=== PATIENT | male | born 1985 | race American Indian/Alaskan Native ===

== ENCOUNTER 2016-06-03 03:45 | Inpatient (IN) | payer BC, MEDICAID ==
[2016-06-03] MEDS ORDERED: Sodium Chloride 0.9% 1,000 ML IV STA (04:07)
--- NOTE | 2016-06-03 04:24 | ED PDOC ---
Arrival/HPI - General Chief Complaint: Abdominal Pain Time Seen by Provider: 06/03/16 04:03 Historian: Patient - History of Present Illness Narrative History of Present Illness (Text): 06/03/16 04:25 Spenser Villareal is a 31 year old male, with a history of pre-diabetes, pancreatitis and ETOH abuse, presents to the emergency department for evaluation of multiple episodes of non-bloody, non-bilious vomit since earlier today morning. Reports that symptoms are associated with abdominal pain and back /flank pain. Denies eating anything out of ordinary yesterday night. Denies fever, chills, headache, dizziness, diarrhea, urinary symptoms, or any other complaints at this time. Time/Duration: 4-6 hours Symptom Onset: Gradual Symptom Course: Unchanged Severity Level: Mild Activities at Onset: Light Context: Home Past Medical History - Provider Review Nursing Documentation Reviewed: Yes - Infectious Disease Hx of Infectious Diseases: None - Tetanus Immunization Tetanus Immunization: Unknown - Cardiac Hx Cardiac Disorders: No Hx Hypertension: No - Pulmonary Hx Respiratory Disorders: No Hx Tuberculosis: No - Neurological HX Cerebrovascular Accident: No Hx Seizures: No - HEENT Hx HEENT Disorder: No - Renal Hx Renal Disorder: No - Endocrine/Metabolic Hx Endocrine Disorders: No - Hematological/Oncological Hx Blood Disorders: No Hx Cancer: No - Integumentary Hx Dermatological Disorder: No - Musculoskeletal/Rheumatological Hx Musculoskeletal Disorders: No Hx Falls: No - Gastrointestinal Hx Pancreatitis: Yes - Genitourinary/Gynecological Hx Genitourinary Disorders: No Hx Sexually Transmitted Diseases: No - Psychiatric Hx Psychophysiologic Disorder: No Hx Substance Use: Yes - Past Surgical History Past Surgical History: No Previous - Anesthesia Hx Anesthesia: No - Suicidal Assessment Feels Threatened In Home Enviroment: No Family/Social History - Physician Review Nursing Documentation Reviewed: Yes Family/Social History: No Known Family HX Smoking Status: Smoker Currrent Status Unknown Hx Alcohol Use: No (states occasionally) Hx Substance Use: Yes Allergies/Home Meds Allergies/Adverse Reactions: Allergies shellfish derived Allergy (Verified 09/12/15 21:21) ANAPHYLAXIS venom-honey bee [bee venom (honey bee)] Allergy (Verified 09/12/15 21:21) ANAPHYLAXIS Home Medications: Home Meds Medication Instructions Recorded Confirmed No Known Home Med 09/12/15 09/12/15 Review of Systems - Physician Review All systems were reviewed & negative as marked: Yes - Review of Systems Constitutional: Normal. absent: Fatigue, Fevers Respiratory: Normal. absent: SOB, Cough Cardiovascular: Normal. absent: Chest Pain, Palpitations Gastrointestinal: Abdominal Pain, Nausea, Vomiting. absent: Diarrhea Genitourinary Male: Normal. absent: Dysuria, Frequency Musculoskeletal: Back Pain (flank pain ) Neurological: Normal. absent: Headache, Dizziness Psychiatric: Normal Physical Exam Vital Signs Reviewed: Yes Vital Signs Temp Pulse Resp BP Pulse Ox 06/03/16 04:04 18 96 06/03/16 03:58 98.7 F 94 H 21 141/79 99 Temperature: Afebrile Blood Pressure: Normal Pulse: Regular Respiratory Rate: Normal Appearance: Positive for: Well-Appearing, Non-Toxic, Comfortable Pain Distress: None Mental Status: Positive for: Alert and Oriented X 3 - Systems Exam Head: Present: Atraumatic, Normocephalic Pupils: Present: PERRL Extroacular Muscles: Present: EOMI Conjunctiva: Present: Normal Mouth: Present: Moist Mucous Membranes Respiratory/Chest: Present: Clear to Auscultation, Good Air Exchange. No: Respiratory Distress, Accessory Muscle Use Cardiovascular: Present: Regular Rate and Rhythm, Normal S1, S2. No: Murmurs Abdomen: Present: Tenderness (diffuse abdominal tenderness ), Normal Bowel Sounds. No: Distention, Peritoneal Signs, Rebound, Guarding Upper Extremity: Present: Normal Inspection. No: Cyanosis, Edema Lower Extremity: Present: Normal Inspection. No: Edema Skin: Present: Warm, Dry, Normal Color. No: Rashes Psychiatric: Present: Alert, Oriented x 3, Normal Insight, Normal Concentration Medical Decision Making ED Course and Treatment: Impression: A 31 year old male who presents to the emergency department complaining of vomiting associated with abdominal and back pain since earlier today. Plan: -- Labs -- IV fluids -- Toradol -- Zofran -- Urinalysis -- Reassess and disposition Progress Notes: 06/03/16 05:33 Case discussed with resident for admission to the hospital for pancreatitis. Will discuss with Dr. Amato. - Lab Interpretations Lab Results: 06/03/16 04:20 06/03/16 04:20 Lab Results 06/03/16 04:20: WBC 8.2, RBC 4.39, Hgb 13.2 L, Hct 38.2 L, MCV 87.0, MCH 30.1, MCHC 34.6, RDW 13.7, Plt Count 143, MPV 10.8, Sodium 139, Potassium 4.0, Chloride 104, Carbon Dioxide 25, Anion Gap 14, BUN 15, Creatinine 1.0, Est GFR ( Amer) > 60, Est GFR (Non-Af Amer) > 60, Random Glucose 125 H, Calcium 9.1, Total Bilirubin 0.8, AST 31, ALT 29, Alkaline Phosphatase 46, Total Protein 7.7, Albumin 4.2, Globulin 3.5, Albumin/Globulin Ratio 1.2, Lipase 1248 H - Medication Orders Current Medication Orders: Discontinued Medications Sodium Chloride (Sodium Chloride 0.9%) 1,000 mls @ 999 mls/hr IV .Q1H1M STA Stop: 06/03/16 05:07 Last Admin: 06/03/16 04:34 Dose: 999 MLS/HR eMAR Start Stop Document 06/03/16 04:34 [facility] (Rec: 06/03/16 04:35 [id number] Intravenous Solution Start Date 06/03/16 Start Time 04:34 End Date 06/03/16 End time 05:34 Total Infusion Time 60 Ketorolac Tromethamine (Toradol) 30 mg IVP ONCE ONE Stop: 06/03/16 04:08 Last Admin: 06/03/16 04:35 Dose: 30 MG IVP Administration Document 06/03/16 04:35 [facility] (Rec: 06/03/16 04:35 [id number] Charges for Administration # of IVP Administrations 1 Morphine Sulfate (Morphine) 2 mg IVP STAT STA Stop: 06/03/16 05:18 Last Admin: 06/03/16 05:25 Dose: 2 MG MAR Pain Assessment Document 06/03/16 05:25 RD (Rec: 06/03/16 05:25 RD [id number]) Pain Reassessment Is this a pain reassessment? No Sleep Is patient sleeping during reassessment? No Presence of Pain Presence of Pain Yes IVP Administration Document 06/03/16 05:25 RD (Rec: 06/03/16 05:25 RD [id number]) Charges for Administration # of IVP Administrations 1 Ondansetron HCl (Zofran Inj) 4 mg IVP ONCE ONE Stop: 06/03/16 04:08 Last Admin: 06/03/16 04:35 Dose: 4 MG IVP Administration Document 06/03/16 04:35 JESSICA (Rec: 06/03/16 04:35 [id number] Charges for Administration # of IVP Administrations 1 - Scribe Statement The provider has reviewed the documentation as recorded by the Sonal Spencer Provider Attestation: All medical record entries made by the Sonal were at my direction and personally dictated by me. I have reviewed the chart and agree that the record accurately reflects my personal performance of the history, physical exam, medical decision making, and the department course for this patient. I have also personally directed, reviewed, and agree with the discharge instructions and disposition. Disposition/Present on Arrival - Present on Arrival Any Indicators Present on Arrival: No History of DVT/PE: No History of Uncontrolled Diabetes: No Urinary Catheter: No History of Decub. Ulcer: No History Surgical Site Infection Following: None - Disposition Have Diagnosis and Disposition been Completed?: Yes Diagnosis: Pancreatitis, Abdominal pain, Vomiting Disposition: HOSPITALIZED Disposition Time: 05:18 Patient Plan: Admission Patient Problems: Current Active Problems Problem Status Diagnosed Abdominal pain Acute Pancreatitis Acute Vomiting Acute Condition: STABLE
[2016-06-03 04:43] LABS: HEMATOCRIT 38.2 % (42.0-52.0); MEAN CORPUSCULAR HEMOGLOBIN 30.1 pg (25.0-35.0); MEAN CORPUSCULAR HGB CONC 34.6 g/dl (31.0-37.0); MEAN PLATELET VOLUME 10.8 fl (7.0-11.0); RED CELL DISTRIBUTION WIDTH 13.7 % (11.5-14.5); WHITE BLOOD COUNT 8.2 10^3/ul (4.5-11.0)
[2016-06-03 04:47] LABS: ALB/GLOB RATIO 1.2 (1.1-1.8); ALKALINE PHOSPHATASE 46 U/L (38-133); ALT/SGPT 29 U/L (7-56); AST/SGOT 31 U/L (15-59); BILIRUBIN,TOTAL 0.8 mg/dL (0.2-1.3); BLOOD UREA NITROGEN 15 mg/dL (7-21); CALCIUM 9.1 mg/dL (8.4-10.5); CARBON DIOXIDE 25 mmol/L (21-33); CHLORIDE 104 mmol/L (95-110); GFR AFRICAN-AMERICAN > 60; GLUCOSE,RANDOM 125 mg/dL (70-110); LIPASE 1248 U/L (23-300); SODIUM 139 mmol/L (132-148); TOTAL PROTEIN 7.7 g/dL (5.8-8.3)
[2016-06-03] MEDS ORDERED: Morphine 2 mg/ml ISec IVP STA (05:17)
--- NOTE | 2016-06-03 06:07 | CP.PCM.HP ---
History of Present Illness - History of Present Illness History of Present Illness: This is a 31 yo male with past medical hx of pancreatitis and prediabetes presenting with vomiting x 6 hrs. Pt began vomiting at around midnight. This was preceded, roughly 1 hr before, by abdominal pain. Abdominal pain was diffuse with radiation to back. It came on gradually. He rated it 7/10. No relation to food. Last BM earlier in the morning. No recent travel. Does report son is sick with "something viral." Pt vomited 6 times overall non bloody and non bilious. Did not take any meds at home, Denies sob, fevers. Denies diarrhea. Reports some chills. Denies cough. Last time this happened was 1 year ago and he was dx with pancreatitis. PMH: Pre-diabetes, allergies, pancreatitis PSH: None Allergies: NKDA FH: HTN, DM in family Social hx: Born in . Lives in [place]. Works as web marketing intern. Current smoker. Smokes cigars. Social drinker. Smokes cannabis. No other drug use. Meds: no home meds. Present on Admission - Present on Admission Any Indicators Present on Admission: No History of DVT/PE: No History of Uncontrolled Diabetes: No Urinary Catheter: No Decubitus Ulcer Present: No Review of Systems - Review of Systems All systems: reviewed and no additional remarkable complaints except Review of Systems: Negative except as per HPI. Past Patient History - Infectious Disease Hx of Infectious Diseases: None - Tetanus Immunizations Tetanus Immunization: Unknown - Past Medical History & Family History Past Medical History?: Yes Past Family History: Reviewed and not pertinent - Past Social History Smoking Status: Current Some Days Smoker Chewing Tobacco Use: No Cigar Use: Yes Alcohol: Social Drugs: Cannabis Home Situation {Lives}: With Family Domestic Violence: Negative - CARDIAC Hx Cardiac Disorders: No Hx Hypertension: No - PULMONARY Hx Respiratory Disorders: No Hx Tuberculosis: No - NEUROLOGICAL HX Cerebrovascular Accident: No Hx Seizures: No - HEENT Hx HEENT Problems: No - RENAL Hx Chronic Kidney Disease: No - ENDOCRINE/METABOLIC Hx Endocrine Disorders: No - HEMATOLOGICAL/ONCOLOGICAL Hx Blood Disorders: No Hx Cancer: No - INTEGUMENTARY Hx Dermatological Problems: No - MUSCULOSKELETAL/RHEUMATOLOGICAL Hx Musculoskeletal Disorders: No Hx Falls: No - GASTROINTESTINAL Hx Pancreatitis: Yes - GENITOURINARY/GYNECOLOGICAL Hx Genitourinary Disorders: No Hx Sexually Transmitted Disorders: No - PSYCHIATRIC Hx Psychophysiologic Disorder: No Hx Substance Use: Yes - SURGICAL HISTORY Hx Surgeries: No - ANESTHESIA Hx Anesthesia: No Meds Allergies/Adverse Reactions: Allergies Allergy/AdvReac Type Severity Reaction Status Date / Time shellfish derived Allergy ANAPHYLAXIS Verified 09/12/15 21:21 venom-honey bee Allergy ANAPHYLAXIS Verified 09/12/15 21:21 [bee venom (honey bee)] Physical Exam - Constitutional Appears: Non-toxic, In Acute Distress - Head Exam Head Exam: ATRAUMATIC, NORMAL INSPECTION, NORMOCEPHALIC - Eye Exam Eye Exam: EOMI - ENT Exam ENT Exam: Mucous Membranes Moist - Neck Exam Neck exam: Positive for: Full Rom, Normal Inspection - Respiratory Exam Respiratory Exam: Clear to Auscultation Bilateral, NORMAL BREATHING PATTERN - Cardiovascular Exam Cardiovascular Exam: REGULAR RHYTHM - GI/Abdominal Exam GI & Abdominal Exam: Guarding, Tenderness Additional comments: Moderate tenderness all 4 quadrants - Extremities Exam Extremities exam: Positive for: normal inspection - Back Exam Back exam: CVA tenderness (L), CVA tenderness (R) - Neurological Exam Neurological exam: Alert, Oriented x3 - Psychiatric Exam Psychiatric exam: Normal Affect, Normal Mood - Skin Skin Exam: Dry, Intact, Normal Color, Warm Results - Vital Signs Recent Vital Signs: Last Vital Signs Temp 98.7 F 06/03/16 03:58 Pulse 88 06/03/16 06:01 Resp 17 06/03/16 06:01 BP 131/71 06/03/16 06:01 Pulse Ox 99 06/03/16 06:01 - Labs Result Diagrams: 06/03/16 04:20 06/03/16 04:20 Labs: Laboratory Results - last 24 hr 06/03/16 04:20 WBC 8.2 RBC 4.39 Hgb 13.2 L Hct 38.2 L MCV 87.0 MCH 30.1 MCHC 34.6 RDW 13.7 Plt Count 143 MPV 10.8 Sodium 139 Potassium 4.0 Chloride 104 Carbon Dioxide 25 Anion Gap 14 BUN 15 Creatinine 1.0 Est GFR ( Amer) > 60 Est GFR (Non-Af Amer) > 60 Random Glucose 125 H Calcium 9.1 Total Bilirubin 0.8 AST 31 ALT 29 Alkaline Phosphatase 46 Total Protein 7.7 Albumin 4.2 Globulin 3.5 Albumin/Globulin Ratio 1.2 Lipase 1248 H Assessment & Plan - Assessment and Plan (Free Text) Assessment: This is a 31 yo male with hx of pancreatitis and pre diabetes presenting with acute abdominal pain and vomiting secondary to 1. Acute pancreatitis -we will give zofran prn -morphine q 3 prn -ct abdomen with iv contrast -repeat labs at 3 pm -lipase elevated -NS @ 200 cc/hr -pt to remain NPO 2. Hx of pre diabetes -repeat HGB A1C 3. GI/DVT ppx -protonix -SCDs dw Dr. Amato
[2016-06-03] MEDS ORDERED: Morphine 2 mg/ml ISec IVP PRN ×2 (06:11→12:38)
[2016-06-03] MEDS ORDERED: Sodium Chloride 0.9% 1,000 ML IV SCH ×2 (06:15→06:38)
[2016-06-03] MEDS ORDERED: Iohexol 350 MG/100 ML VIAL ONE (07:39)
[2016-06-03] MEDS ORDERED: Morphine 2 mg/ml ISec IVP SCH (09:00)
[2016-06-03] MEDS: Lactated Ringer's 1,000 ML IV SCH ×2 (09:21→14:53)
--- NOTE | 2016-06-03 09:34 | CT ---
PROCEDURE: CT Abdomen with intravenous contrast HISTORY: abdominal pain, with iv contrast COMPARISON: None. TECHNIQUE: Axial images of the abdomen from lung bases to iliac crest with and without intravenous contrast enhancement. Coronal and sagittal reformats generated. Oral contrast also administered. Intravenous contrast Dose: 100 cc of Omni 350 Radiation dose: Total exam DLP = 291 mGy-cm. FINDINGS: LOWER THORAX: Unremarkable. LIVER: Unremarkable. No gross lesion or ductal dilatation. GALLBLADDER AND BILE DUCTS: Unremarkable. PANCREAS: Unremarkable. No gross lesion or ductal dilatation. SPLEEN: Unremarkable. ADRENALS: Unremarkable. No mass. KIDNEYS AND URETERS: Unremarkable. No hydronephrosis. No solid mass. VASCULATURE: Unremarkable. No aortic aneurysm. BOWEL: Unremarkable. No obstruction. No gross mural thickening. PERITONEUM: Unremarkable. No free fluid. No free air. LYMPH NODES: Unremarkable. No enlarged lymph nodes. BONES: No acute fracture. OTHER FINDINGS: None. IMPRESSION: No acute findings
--- NOTE | 2016-06-03 12:23 | CP.PCM.CON ---
History of Present Illness - History of Present Illness History of Present Illness: CC: Abdominal pain HPI: 31 year old male with h/o pancreatitis who presents with abdominal pain. He reports the pain woke him up from sleeping this morning. He localizes the pain to the epigastric area. He says the pain is constant and severe. He has continuous vomiting and spitting up saliva since this morning. His son got sick with vomiting Thursday also. He says he has had at least 5 similar episodes of pancreatitis where he is admitted to the hospital and no etiology has been diagnosed. He reports no chest pain or sob. No fever. No rectal bleeding. No recent weight loss PMHx Acute recurrent pancreatitis PSHx denies SHx social etoh and smoking, denies abuse, denies drug abuse FHx denies fhx pancreatic disease ROS A comprehensive review of systems was performed and was negative apart from HPI Past Patient History - Infectious Disease Hx of Infectious Diseases: None - Tetanus Immunizations Tetanus Immunization: Unknown - Past Medical History & Family History Past Medical History?: Yes Past Family History: Reviewed and not pertinent - Past Social History Smoking Status: Current Some Days Smoker Chewing Tobacco Use: No Cigar Use: Yes Alcohol: Social Drugs: Cannabis Home Situation {Lives}: With Family Domestic Violence: Negative - CARDIAC Hx Cardiac Disorders: No Hx Hypertension: No - PULMONARY Hx Respiratory Disorders: No Hx Tuberculosis: No - NEUROLOGICAL HX Cerebrovascular Accident: No Hx Seizures: No - HEENT Hx HEENT Problems: No - RENAL Hx Chronic Kidney Disease: No - ENDOCRINE/METABOLIC Hx Endocrine Disorders: No - HEMATOLOGICAL/ONCOLOGICAL Hx Blood Disorders: No Hx Cancer: No - INTEGUMENTARY Hx Dermatological Problems: No - MUSCULOSKELETAL/RHEUMATOLOGICAL Hx Musculoskeletal Disorders: No Hx Falls: No - GASTROINTESTINAL Hx Pancreatitis: Yes - GENITOURINARY/GYNECOLOGICAL Hx Genitourinary Disorders: No Hx Sexually Transmitted Disorders: No - PSYCHIATRIC Hx Psychophysiologic Disorder: No Hx Substance Use: Yes - SURGICAL HISTORY Hx Surgeries: No - ANESTHESIA Hx Anesthesia: No Meds Allergies/Adverse Reactions: Allergies Allergy/AdvReac Type Severity Reaction Status Date / Time shellfish derived Allergy ANAPHYLAXIS Verified 06/03/16 12:14 venom-honey bee Allergy ANAPHYLAXIS Verified 06/03/16 12:14 [bee venom (honey bee)] - Medications Medications: Current Medications Lactated Ringer's (Lactated Ringer's) 1,000 mls @ 200 mls/hr IV .Q5H [facility] Last Admin: 06/03/16 09:21 Dose: 200 mls/hr Morphine Sulfate (Morphine) 2 mg IVP Q3 [facility] Last Admin: 06/03/16 09:29 Dose: 2 mg Ondansetron HCl (Zofran Inj) 4 mg IVP Q4H PRN PRN Reason: Nausea/Vomiting Last Admin: 06/03/16 06:52 Dose: 4 mg Pantoprazole Sodium (Protonix Inj) 40 mg IVP DAILY [facility] Last Admin: 06/03/16 09:18 Dose: 40 mg Physical Exam - Constitutional Appears: Well, No Acute Distress - Head Exam Head Exam: ATRAUMATIC, NORMOCEPHALIC - Eye Exam Eye Exam: Normal appearance. absent: Scleral icterus - ENT Exam ENT Exam: Mucous Membranes Moist, Normal Oropharynx - Neck Exam Neck exam: Negative for: Lymphadenopathy, Thyromegaly - Respiratory Exam Respiratory Exam: Clear to Auscultation Bilateral, NORMAL BREATHING PATTERN. absent: Wheezes, Respiratory Distress - Cardiovascular Exam Cardiovascular Exam: REGULAR RHYTHM, +S1, +S2 - GI/Abdominal Exam GI & Abdominal Exam: Soft. absent: Distended, Firm, Guarding, Tenderness - Extremities Exam Extremities exam: Positive for: normal capillary refill. Negative for: calf tenderness, pedal edema - Neurological Exam Neurological exam: Alert, Oriented x3 - Psychiatric Exam Psychiatric exam: Normal Affect, Normal Mood - Skin Skin Exam: Dry, Normal Color, Warm Results - Vital Signs Recent Vital Signs: Last Vital Signs Temp 98.2 F 06/03/16 07:30 Pulse 84 06/03/16 07:30 Resp 20 06/03/16 07:30 BP 117/62 06/03/16 07:30 Pulse Ox 98 06/03/16 07:30 - Labs Result Diagrams: 06/03/16 04:20 06/03/16 04:20 Labs: Laboratory Results - last 24 hr 06/03/16 06/03/16 07:00 09:00 Hemoglobin A1c 5.7 Urine Opiates Screen Positive H Urine Methadone Screen Negative Ur Barbiturates Screen Negative Ur Phencyclidine Scrn Negative Ur Amphetamines Screen Negative U Benzodiazepines Scrn Negative U Oth Cocaine Metabols Negative U Cannabinoids Screen Positive H Alcohol, Quantitative < 10 Assessment & Plan - Assessment and Plan (Free Text) Assessment: 31 year old male admitted with recurrent acute pancreatitis. 1. Acute pancreatitis Plan: -recommend aggressive IV hydration with LR at 200 cc/hr x next 24 hours -pain control and antiemetics as needed -etiology uncertain -recommend uS abdomen r/o gallstones -recommend MRCP to evaluate for pancreas divisum -recommend outpatient EUS in 6-8 weeks -check triglyceride level -will follow - Date & Time Date: 06/03/16 Time: 12:23
[2016-06-03 13:37] VITALS: BMI 27.0
[2016-06-03] MEDS ORDERED: Influenza Vaccine 45 MCG/0.5 ml IM ONE (13:37)
[2016-06-03] MEDS ORDERED: Pneumococcal 23-Valent Vaccine IM ONE (13:37)
[2016-06-03 15:54] LABS: ADD MANUAL DIFF? NO
[2016-06-03 15:59] LABS: GRAN # 5.02 (1.4-6.5); GRAN % 86.7 % (50.0-68.0); HEMATOCRIT 37.8 % (42.0-52.0); LYMPH # 0.5 (1.2-3.4); LYMPH % 8.6 % (22.0-35.0); MEAN CELL VOLUME 88.1 fL (80.0-105.0); MEAN CORPUSCULAR HEMOGLOBIN 29.6 pg (25.0-35.0); MEAN CORPUSCULAR HGB CONC 33.6 g/dl (31.0-37.0); MEAN PLATELET VOLUME 10.6 fl (7.0-11.0); MONO # 0.3 (0.1-0.6); MONO % 4.7 % (1.0-6.0); PLATELET COUNT 150 10^3/uL (120.0-450.0); RED CELL DISTRIBUTION WIDTH 14.1 % (11.5-14.5); WHITE BLOOD COUNT 5.8 10^3/ul (4.5-11.0)
[2016-06-03 16:05] VITALS: BP 119/71; PULSE 97; RESP 18; TEMP 99.7; O2SAT 100
[2016-06-03 16:08] LABS: ALB/GLOB RATIO 1.2 (1.1-1.8); ALKALINE PHOSPHATASE 38 U/L (38-133); ALT/SGPT 27 U/L (7-56); AST/SGOT 30 U/L (15-59); BILIRUBIN,TOTAL 1.3 mg/dL (0.2-1.3); BLOOD UREA NITROGEN 13 mg/dL (7-21); CALCIUM 8.8 mg/dL (8.4-10.5); CARBON DIOXIDE 25 mmol/L (21-33); CHLORIDE 103 mmol/L (98-107); CHOLESTEROL 154 mg/dL (130-200); GFR AFRICAN-AMERICAN > 60; GLUCOSE,RANDOM 108 mg/dL (70-110); LIPASE 1357 U/L (23-300); POTASSIUM 3.8 mmol/L (3.6-5.0); SODIUM 139 mmol/L (132-148); TOTAL PROTEIN 7.2 g/dL (5.8-8.3)
--- NOTE | 2016-06-03 16:11 | CP.PCM.PN ---
<Immanuel Burgos - Last Filed: 06/03/16 16:04> Subjective - Date & Time of Evaluation Date of Evaluation: 06/03/16 Time of Evaluation: 16:04 - Subjective Subjective: Code star 15:34 Patient had witnessed fall from bed. He was sitting on side of his bed while waiting to get his blood drawn. Patient stated that he was feeling extremely nauseous and could not take it. He then rolled from the bed to the floor. Patient denied hitting his head. Afterwards, patient still complaining of nausea and intense abdominal pain in LUQ. Patient was able to get back up to bed with help. He continued to have nausea/pain. Vital signs 99.7 F, 97, 119/71, 18, 100% PE: Head: NCAT RESP: CTAB Cardio: RRR ,+S1 +S2 ABD: BS+, Soft, tender to palpation LUQ, no guarding/rebound, nondistended Neuro: AAO x 3 Skin: no trauma-related abrasions or lesions Objective - Vital Signs/Intake and Output Vital Signs (last 24 hours): Temp Pulse Resp BP Pulse Ox 98.2 F 84 20 117/62 98 06/03/16 13:13 06/03/16 13:13 06/03/16 13:13 06/03/16 13:13 06/03/16 07:30 Intake and Output: 06/03/16 06/03/16 06:59 18:59 Intake Total 0 Balance 0 - Medications Medications: Current Medications Lactated Ringer's (Lactated Ringer's) 1,000 mls @ 200 mls/hr IV .Q5H [facility] Last Admin: 06/03/16 14:53 Dose: 200 mls/hr Morphine Sulfate (Morphine) 2 mg IVP Q3 PRN PRN Reason: Pain, severe (8-10) Ondansetron HCl (Zofran Inj) 4 mg IVP Q4H PRN PRN Reason: Nausea/Vomiting Last Admin: 06/03/16 06:52 Dose: 4 mg Pantoprazole Sodium (Protonix Inj) 40 mg IVP DAILY [facility] Last Admin: 06/03/16 09:18 Dose: 40 mg <Funmi Bello - Last Filed: 06/03/16 18:57> Subjective - Date & Time of Evaluation Date of Evaluation: 06/03/16 Time of Evaluation: 12:00 - Subjective Subjective: pt is admitted with acute pancreatitis , was vomiting by bed side and rolled over to the florr did not hit head ,no loc, is c/o lower back pain. Objective - Vital Signs/Intake and Output Vital Signs (last 24 hours): Temp Pulse Resp BP Pulse Ox 99.7 F H 97 H 18 119/71 100 06/03/16 16:03 06/03/16 16:03 06/03/16 16:03 06/03/16 16:03 06/03/16 16:03 Intake and Output: 06/03/16 06/03/16 06:59 18:59 Intake Total 0 Balance 0 - Medications Medications: Current Medications Lactated Ringer's (Lactated Ringer's) 1,000 mls @ 200 mls/hr IV .Q5H [facility] Last Admin: 06/03/16 14:53 Dose: 200 mls/hr Morphine Sulfate (Morphine) 2 mg IVP Q3 PRN PRN Reason: Pain, severe (8-10) Ondansetron HCl (Zofran Inj) 4 mg IVP Q4H PRN PRN Reason: Nausea/Vomiting Last Admin: 06/03/16 06:52 Dose: 4 mg Pantoprazole Sodium (Protonix Inj) 40 mg IVP DAILY [facility] Last Admin: 06/03/16 09:18 Dose: 40 mg - Labs Labs: 06/03/16 15:50 06/03/16 15:50
--- NOTE | 2016-06-03 21:35 | CP.PCM.PN ---
Subjective - Date & Time of Evaluation Date of Evaluation: 06/03/16 Time of Evaluation: 21:33 - Subjective Subjective: Code star call. Pt did not have code star. Pt did not fall. He went down onto floor, was retching, and tried to throw up in basin. Objective - Vital Signs/Intake and Output Vital Signs (last 24 hours): Temp Pulse Resp BP Pulse Ox 99.7 F H 97 H 18 119/71 100 06/03/16 16:03 06/03/16 16:03 06/03/16 16:03 06/03/16 16:03 06/03/16 16:03 Intake and Output: 06/03/16 06/04/16 18:59 06:59 Intake Total 0 Balance 0 - Medications Medications: Current Medications Lactated Ringer's (Lactated Ringer's) 1,000 mls @ 200 mls/hr IV .Q5H [facility] Last Admin: 06/03/16 14:53 Dose: 200 mls/hr Morphine Sulfate (Morphine) 2 mg IVP Q3 PRN PRN Reason: Pain, severe (8-10) Ondansetron HCl (Zofran Inj) 4 mg IVP Q4H PRN PRN Reason: Nausea/Vomiting Last Admin: 06/03/16 06:52 Dose: 4 mg Pantoprazole Sodium (Protonix Inj) 40 mg IVP DAILY [facility] Last Admin: 06/03/16 09:18 Dose: 40 mg - Labs Labs: 06/03/16 15:50 06/03/16 15:50 - Constitutional Appears: In Acute Distress - Head Exam Head Exam: ATRAUMATIC, NORMAL INSPECTION, NORMOCEPHALIC - Eye Exam Eye Exam: EOMI - Neck Exam Neck Exam: Full ROM, Normal Inspection. absent: Lymphadenopathy - Respiratory Exam Respiratory Exam: Clear to Ausculation Bilateral, NORMAL BREATHING PATTERN - Cardiovascular Exam Cardiovascular Exam: REGULAR RHYTHM, +S1, +S2. absent: Murmur - GI/Abdominal Exam GI & Abdominal Exam: Tenderness - Neurological Exam Neurological Exam: Alert, Awake, Oriented x3 - Psychiatric Exam Psychiatric exam: Agitated - Skin Skin Exam: Dry, Intact, Normal Color, Warm Assessment and Plan - Assessment and Plan (Free Text) Assessment: 1. Acute pancreatitis /retching -no code star -pt did not fall -will give 1 stat dose of regiglesia Amato
[2016-06-04 07:38] LABS: ADD MANUAL DIFF? NO
[2016-06-04 07:43] LABS: BASO # 0.01 K/mm3 (0.0-2.0); BASO % 0.2 % (0.0-3.0); EOS % 0.3 % (1.5-5.0); GRAN # 3.97 (1.4-6.5); GRAN % 65.1 % (50.0-68.0); HEMATOCRIT 34.8 % (42.0-52.0); LYMPH # 1.4 (1.2-3.4); LYMPH % 23.2 % (22.0-35.0); MEAN CELL VOLUME 87.2 fL (80.0-105.0); MEAN CORPUSCULAR HEMOGLOBIN 29.3 pg (25.0-35.0); MEAN CORPUSCULAR HGB CONC 33.6 g/dl (31.0-37.0); MEAN PLATELET VOLUME 10.8 fl (7.0-11.0); MONO # 0.7 (0.1-0.6); MONO % 11.2 % (1.0-6.0); PLATELET COUNT 145 10^3/uL (120.0-450.0); WHITE BLOOD COUNT 6.1 10^3/ul (4.5-11.0)
--- NOTE | 2016-06-04 07:47 | US ---
HISTORY: pancreatitis, r/o gallstones COMPARISON: None. TECHNIQUE: Sonographic evaluation of the right upper quadrant of the abdomen. FINDINGS: LIVER: Measures 15 cm in length. It is normal in size Increased echogenicity of the liver parenchyma. No mass. No intrahepatic bile duct dilatation. GALLBLADDER: Unremarkable. No gallstones. COMMON BILE DUCT: Measures 5 mm. No stones. No dilatation. PANCREAS: Unremarkable as visualized. No mass. No ductal dilatation. RIGHT KIDNEY: Measures 11 cm in length. Normal echogenicity. No calculus, mass, or hydronephrosis. AORTA: No aneurysmal dilatation. IVC: Unremarkable. OTHER FINDINGS: None . IMPRESSION: Mild increased liver echogenicity -fatty liver changes possible. Otherwise negative
--- NOTE | 2016-06-04 08:03 | CP.PCM.PN ---
Subjective - Date & Time of Evaluation Date of Evaluation: 06/04/16 Time of Evaluation: 07:20 - Subjective Subjective: PGY4 GI Fellow Progress Note Patient seen and examined bedside this morning. The patient is stating that he is feeling much better and would like to go home. He does not wish to stay and have further work up as he is concerned about his children at home as well as missing work. Denies any abdominal pain, nausea, vomiting. Eager to advance diet. 12 system ROS performed and negative except where stated. Objective - Vital Signs/Intake and Output Vital Signs (last 24 hours): Temp Pulse Resp BP Pulse Ox 99.7 F H 97 H 18 119/71 100 06/03/16 16:03 06/03/16 16:03 06/03/16 16:03 06/03/16 16:03 06/03/16 16:03 - Medications Medications: Current Medications Lactated Ringer's (Lactated Ringer's) 1,000 mls @ 200 mls/hr IV .Q5H [facility] Last Admin: 06/03/16 14:53 Dose: 200 mls/hr Morphine Sulfate (Morphine) 2 mg IVP Q3 PRN PRN Reason: Pain, severe (8-10) Last Admin: 06/03/16 22:48 Dose: 2 mg Ondansetron HCl (Zofran Inj) 4 mg IVP Q4H PRN PRN Reason: Nausea/Vomiting Last Admin: 06/03/16 06:52 Dose: 4 mg Pantoprazole Sodium (Protonix Inj) 40 mg IVP DAILY [facility] Last Admin: 06/03/16 09:18 Dose: 40 mg - Labs Labs: 06/04/16 07:05 06/03/16 15:50 - Constitutional Appears: Non-toxic, No Acute Distress - Eye Exam Eye Exam: EOMI, PERRL - ENT Exam ENT Exam: Mucous Membranes Moist - Respiratory Exam Respiratory Exam: Clear to Ausculation Bilateral. absent: Rales, Rhonchi, Wheezes - Cardiovascular Exam Cardiovascular Exam: RRR, +S1, +S2 - GI/Abdominal Exam GI & Abdominal Exam: Soft, Normal Bowel Sounds. absent: Distended, Firm, Guarding, Rigid, Tenderness, Organomegaly - Extremities Exam Extremities Exam: Normal Inspection. absent: Pedal Edema - Neurological Exam Neurological Exam: Alert, Awake, Oriented x3 - Psychiatric Exam Psychiatric exam: Normal Mood - Skin Skin Exam: Dry, Warm Assessment and Plan - Assessment and Plan (Free Text) Assessment: 31 year old male admitted with recurrent acute pancreatitis with unexplained etiology -Acute pancreatitis Plan: -Patient asymptomatic at present -Recommend MRCP to evaluate PD, r/o divisum, masses -TG level low -Awaiting U/S report -Continue IVF, advance diet as tolerated -Consider checking IgG4 - r/o autoimmune pancreatitis -If patient to be D/C, recommend outpatient F/U with Dr Alexander -Recommend outpatient EUS in 6-8 weeks -Will follow
[2016-06-04 08:04] LABS: ALB/GLOB RATIO 1.2 (1.1-1.8); ALKALINE PHOSPHATASE 35 U/L (38-133); ALT/SGPT 27 U/L (7-56); AST/SGOT 29 U/L (15-59); BILIRUBIN,TOTAL 0.8 mg/dL (0.2-1.3); BLOOD UREA NITROGEN 13 mg/dL (7-21); CALCIUM 8.5 mg/dL (8.4-10.5); CARBON DIOXIDE 27 mmol/L (21-33); CHLORIDE 105 mmol/L (95-110); GFR AFRICAN-AMERICAN > 60; GLUCOSE,RANDOM 94 mg/dL (70-110); POTASSIUM 3.5 mmol/L (3.6-5.0); SODIUM 141 mmol/L (132-148); TOTAL PROTEIN 6.4 g/dL (5.8-8.3)
--- NOTE | 2016-06-04 14:58 | CP.PCM.DIS ---
<Ru Trinh - Last Filed: 06/05/16 02:05> Provider - Provider Date of Admission: 06/03/16 05:19 Attending physician: Amarilis Sierra MD Primary care physician: Dr. Whitmore Consults: Dr. Hatfield Time Spent in preparation of Discharge (in minutes): 40 Diagnosis - Discharge Diagnosis (1) Acute pancreatitis Status: Resolved (2) Vomiting Status: Resolved (3) Prediabetes Status: Chronic Hospital Course - Lab Results Lab Results: Most Recent Lab Values WBC 6.1 10^3/ul (4.5-11.0) 06/04/16 07:05 RBC 3.99 10^6/uL (3.5-6.1) 06/04/16 07:05 Hgb 11.7 gm/dL (14.0-18.0) L 06/04/16 07:05 Hct 34.8 % (42.0-52.0) L 06/04/16 07:05 MCV 87.2 fL (80.0-105.0) 06/04/16 07:05 MCH 29.3 pg (25.0-35.0) 06/04/16 07:05 MCHC 33.6 g/dl (31.0-37.0) 06/04/16 07:05 RDW 14.0 % (11.5-14.5) 06/04/16 07:05 Plt Count 145 10^3/uL (120.0-450.0) 06/04/16 07:05 MPV 10.8 fl (7.0-11.0) 06/04/16 07:05 Gran % 65.1 % (50.0-68.0) 06/04/16 07:05 Lymph % (Auto) 23.2 % (22.0-35.0) 06/04/16 07:05 [place] % (Auto) 11.2 % (1.0-6.0) H 06/04/16 07:05 Eos % (Auto) 0.3 % (1.5-5.0) L 06/04/16 07:05 Baso % (Auto) 0.2 % (0.0-3.0) 06/04/16 07:05 Gran # 3.97 (1.4-6.5) 06/04/16 07:05 Lymph # 1.4 (1.2-3.4) 06/04/16 07:05 Radford # 0.7 (0.1-0.6) H 06/04/16 07:05 Eos # 0.0 (0.0-0.7) 06/04/16 07:05 Baso # 0.01 K/mm3 (0.0-2.0) 06/04/16 07:05 Sodium 141 mmol/L (132-148) 06/04/16 07:05 Potassium 3.5 mmol/L (3.6-5.0) L 06/04/16 07:05 Chloride 105 mmol/L (95-110) 06/04/16 07:05 Carbon Dioxide 27 mmol/L (21-33) 06/04/16 07:05 Anion Gap 13 (10-20) 06/04/16 07:05 BUN 13 mg/dL (7-21) 06/04/16 07:05 Creatinine 0.9 mg/dL (0.5-1.4) 06/04/16 07:05 Est GFR ( Amer) > 60 06/04/16 07:05 Est GFR (Non-Af Amer) > 60 06/04/16 07:05 Random Glucose 94 mg/dL (70-110) 06/04/16 07:05 Hemoglobin A1c 5.7 % (4.2-6.5) 06/03/16 07:00 Calcium 8.5 mg/dL (8.4-10.5) 06/04/16 07:05 Total Bilirubin 0.8 mg/dL (0.2-1.3) 06/04/16 07:05 AST 29 U/L (15-59) 06/04/16 07:05 ALT 27 U/L (7-56) 06/04/16 07:05 Alkaline Phosphatase 35 U/L (38-133) L 06/04/16 07:05 Total Protein 6.4 g/dL (5.8-8.3) 06/04/16 07:05 Albumin 3.5 g/dL (3.0-4.8) 06/04/16 07:05 Globulin 2.9 gm/dL 06/04/16 07:05 Albumin/Globulin Ratio 1.2 (1.1-1.8) 06/04/16 07:05 Triglycerides 43 mg/dL (35-160) 06/04/16 07:05 Cholesterol 154 mg/dL (130-200) 06/03/16 15:50 LDL Cholesterol Direct 88 mg/dL (0-129) 06/03/16 15:50 HDL Cholesterol 44 mg/dL (29-60) 06/03/16 15:50 Lipase 1357 U/L (23-300) H 06/03/16 15:50 Urine Opiates Screen Positive (NEGATIVE) H 06/03/16 09:00 Urine Methadone Screen Negative (NEGATIVE) 06/03/16 09:00 Ur Barbiturates Screen Negative (NEGATIVE) 06/03/16 09:00 Ur Phencyclidine Scrn Negative (NEGATIVE) 06/03/16 09:00 Ur Amphetamines Screen Negative (NEGATIVE) 06/03/16 09:00 U Benzodiazepines Scrn Negative (NEGATIVE) 06/03/16 09:00 U Oth Cocaine Metabols Negative (NEGATIVE) 06/03/16 09:00 U Cannabinoids Screen Positive (NEGATIVE) H 06/03/16 09:00 Alcohol, Quantitative < 10 mg/dL (0-10) 06/03/16 07:00 - Hospital Course Hospital Course: 31 year old male with past medical history of pancreatitis and prediabetes presented to [facility] [place] with vomiting. Patient began vomiting at around midnight. This was preceded, roughly 1 hr before, by abdominal pain. Abdominal pain was diffuse with radiation to back. It came on gradually. He rated it 7/ 10. No relation to food. Last BM earlier in the morning. No recent travel. Does report son is sick with "something viral." Patient vomited 6 times overall non bloody and non bilious. Did not take any meds at home, Denies sob, fevers. Denies diarrhea. Reports some chills. Denies cough. Last time this happened was 1 year ago and he was dx with pancreatitis. In the ED, patient was found to have elevated lipase of 1248. CT abdomen showed no acute findings. IVF, toradol , morphine, and zofran were given. Upon admission, patient was started on LR IVF at 200ml/hr. GI was consulted and recommended IVF, MRCP and abdominal ultrasound. Ultrasound showed mild increased liver echogenicity-fatty liver changes. Patient had two close to falling episodes when he was bending forward to vomit, but did not sustain any injuries. Patient had multiple episodes of vomiting during his hospital day on 05/06/16, zofran and reglan were given. Patient's symptoms improved overnight. In the morning the patient requested to be discharged after seen by GI. Patient stated GI team recommended MRCP to be done outpatient. He further stated "I feels great, no complaints at all", patient wanted to leave the hospital right away refused to stay for morning ground. Risks and benefits were extensively discussed with the patient. Patient agreed and insisted on leaving AMA. Patient signed AMA formed with witness RN Dalton present. - Date & Time of H&P Date of H&P: 06/04/16 Time of H&P: 06:03 Discharge Exam - Head Exam Head Exam: ATRAUMATIC, NORMAL INSPECTION, NORMOCEPHALIC - Eye Exam Eye Exam: EOMI, PERRL - ENT Exam ENT Exam: Mucous Membranes Moist - Neck Exam Neck exam: Normal Inspection - Respiratory Exam Respiratory Exam: Clear to PA & Lateral, NORMAL BREATHING PATTERN, UNREMARKABLE. absent: Rhonchi, Wheezes, Respiratory Distress - Cardiovascular Exam Cardiovascular Exam: REGULAR RHYTHM, RRR, +S1, +S2 - GI/Abdominal Exam GI & Abdominal Exam: Normal Bowel Sounds, Soft. absent: Hernia, Rigid, Tenderness - Extremities Exam Extremities exam: normal inspection, pedal pulses present - Back Exam Back exam: NORMAL INSPECTION. absent: CVA tenderness (L), CVA tenderness (R) - Neurological Exam Neurological exam: Alert, Oriented x3 - Psychiatric Exam Psychiatric exam: Normal Affect, Normal Mood - Skin Skin Exam: Dry, Intact, Normal Color, Warm Discharge Plan - Follow Up Plan Condition: STABLE Disposition: AGAINST MEDICAL ADVICE <Amarilis Seirra - Last Filed: 06/05/16 06:45> Provider - Provider Date of Admission: 06/03/16 05:19 Attending physician: Amarilis Sierra MD Hospital Course - Lab Results Lab Results: Most Recent Lab Values WBC 6.1 10^3/ul (4.5-11.0) 06/04/16 07:05 RBC 3.99 10^6/uL (3.5-6.1) 06/04/16 07:05 Hgb 11.7 gm/dL (14.0-18.0) L 06/04/16 07:05 Hct 34.8 % (42.0-52.0) L 06/04/16 07:05 MCV 87.2 fL (80.0-105.0) 06/04/16 07:05 MCH 29.3 pg (25.0-35.0) 06/04/16 07:05 MCHC 33.6 g/dl (31.0-37.0) 06/04/16 07:05 RDW 14.0 % (11.5-14.5) 06/04/16 07:05 Plt Count 145 10^3/uL (120.0-450.0) 06/04/16 07:05 MPV 10.8 fl (7.0-11.0) 06/04/16 07:05 Gran % 65.1 % (50.0-68.0) 06/04/16 07:05 Lymph % (Auto) 23.2 % (22.0-35.0) 06/04/16 07:05 Radford % (Auto) 11.2 % (1.0-6.0) H 06/04/16 07:05 Eos % (Auto) 0.3 % (1.5-5.0) L 06/04/16 07:05 Baso % (Auto) 0.2 % (0.0-3.0) 06/04/16 07:05 Gran # 3.97 (1.4-6.5) 06/04/16 07:05 Lymph # 1.4 (1.2-3.4) 06/04/16 07:05 Radford # 0.7 (0.1-0.6) H 06/04/16 07:05 Eos # 0.0 (0.0-0.7) 06/04/16 07:05 Baso # 0.01 K/mm3 (0.0-2.0) 06/04/16 07:05 Sodium 141 mmol/L (132-148) 06/04/16 07:05 Potassium 3.5 mmol/L (3.6-5.0) L 06/04/16 07:05 Chloride 105 mmol/L (95-110) 06/04/16 07:05 Carbon Dioxide 27 mmol/L (21-33) 06/04/16 07:05 Anion Gap 13 (10-20) 06/04/16 07:05 BUN 13 mg/dL (7-21) 06/04/16 07:05 Creatinine 0.9 mg/dL (0.5-1.4) 06/04/16 07:05 Est GFR ( Amer) > 60 06/04/16 07:05 Est GFR (Non-Af Amer) > 60 06/04/16 07:05 Random Glucose 94 mg/dL (70-110) 06/04/16 07:05 Hemoglobin A1c 5.7 % (4.2-6.5) 06/03/16 07:00 Calcium 8.5 mg/dL (8.4-10.5) 06/04/16 07:05 Total Bilirubin 0.8 mg/dL (0.2-1.3) 06/04/16 07:05 AST 29 U/L (15-59) 06/04/16 07:05 ALT 27 U/L (7-56) 06/04/16 07:05 Alkaline Phosphatase 35 U/L (38-133) L 06/04/16 07:05 Total Protein 6.4 g/dL (5.8-8.3) 06/04/16 07:05 Albumin 3.5 g/dL (3.0-4.8) 06/04/16 07:05 Globulin 2.9 gm/dL 06/04/16 07:05 Albumin/Globulin Ratio 1.2 (1.1-1.8) 06/04/16 07:05 Triglycerides 43 mg/dL (35-160) 06/04/16 07:05 Cholesterol 154 mg/dL (130-200) 06/03/16 15:50 LDL Cholesterol Direct 88 mg/dL (0-129) 06/03/16 15:50 HDL Cholesterol 44 mg/dL (29-60) 06/03/16 15:50 Lipase 1357 U/L (23-300) H 06/03/16 15:50 Urine Opiates Screen Positive (NEGATIVE) H 06/03/16 09:00 Urine Methadone Screen Negative (NEGATIVE) 06/03/16 09:00 Ur Barbiturates Screen Negative (NEGATIVE) 06/03/16 09:00 Ur Phencyclidine Scrn Negative (NEGATIVE) 06/03/16 09:00 Ur Amphetamines Screen Negative (NEGATIVE) 06/03/16 09:00 U Benzodiazepines Scrn Negative (NEGATIVE) 06/03/16 09:00 U Oth Cocaine Metabols Negative (NEGATIVE) 06/03/16 09:00 U Cannabinoids Screen Positive (NEGATIVE) H 06/03/16 09:00 Alcohol, Quantitative < 10 mg/dL (0-10) 06/03/16 07:00 Attending/Attestation - Attestation I have reviewed all pertinent clinical information, including history, physical exam and plan: Yes Notes (Text): 06/04/16 31 year old male with past medical history of pancreatitis who presented with complaint of abdominal pain and nausea/vomiting. He was found to have elevated lipase and admitted for pancreatitis. He was NPO with iv fluids, antiemetics and analgesics. Alcohol level was negative and triglycerides were normal. CT abd/pelvis was negative and US abdomen was negative for gallstones. He was seen by GI who recommended MRCP. Overnight he continued to complain of abdominal pain with nausea and wretching. This morning he reports he felt better and did not want to wait for morning rounds. He was explained on risks of signing out AMA but signed out against medical advice. Amarilis Sierra MD Hospitalist.
== END 2016-06-04 09:05 | disposition left against medical advice (07) ==
LOC: ED 03:45 → ERH 05:19 → 5RNO 06:39 → 5RSO 20:57
PROVIDERS: ADMIT Hospitalist; ATTEND Internal Medicine
DX: K85.90 Acute pancreatitis without necrosis or infection, unspecified (principal); K76.0 Fatty (change of) liver, not elsewhere classified; W06.XXXA Fall from bed, initial encounter; F17.290 Nicotine dependence, other tobacco product, uncomplicated; F12.90 Cannabis use, unspecified, uncomplicated; K86.1 Other chronic pancreatitis; R73.03 Prediabetes; Z82.49 Family history of ischemic heart disease and other diseases of the circulatory system; Z83.3 Family history of diabetes mellitus; Z87.892 Personal history of anaphylaxis; Z91.030 Bee allergy status; Z91.013 Allergy to seafood; R11.10 Vomiting, unspecified

== ENCOUNTER 2016-08-08 16:16 | Emergency (ER) | payer MEDICAID ==
[2016-08-08 16:16] VITALS: BMI 27.0
[2016-08-08 16:25] VITALS: BP 112/66; PULSE 70; RESP 16; TEMP 99
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
[2016-08-08 17:22] VITALS: O2SAT 98
--- NOTE | 2016-08-08 18:11 | RAD ---
PROCEDURE: Radiographs of the Chest and Left Ribs. HISTORY: left rib pain s/p injury COMPARISON: 12/27/2015.. TECHNIQUE: Frontal radiograph of the chest and multiple oblique radiographs of the left ribs were obtained. FINDINGS: LEFT RIBS: No fracture or focal lesion visualized. LUNGS: Clear. PLEURA: No pneumothorax or pleural fluid. CARDIOVASCULAR: Normal sized heart. No pulmonary vascular congestion. OTHER FINDINGS: None. IMPRESSION: Unremarkable radiographs of the chest and left ribs. No left rib fracture.
== END 2016-08-08 17:21 | disposition home or self-care (01) ==
LOC: ED 16:16
DX: S20.212A Contusion of left front wall of thorax, initial encounter (principal); W51.XXXA Accidental striking against or bumped into by another person, initial encounter; Y93.67 Activity, basketball; Y92.39 Other specified sports and athletic area as the place of occurrence of the external cause
CPT/HCPCS: 71101; 96372; 99283; J1885

== ENCOUNTER 2017-01-27 14:31 | Emergency (ER) | payer MEDICAID ==
[2017-01-27 15:09] VITALS: BMI 25.7
[2017-01-27 15:14] VITALS: TEMP 98.1
--- NOTE | 2017-01-27 15:44 | ED PDOC ---
Arrival/HPI - General Chief Complaint: Back Pain Time Seen by Provider: 01/27/17 14:38 Historian: Patient - History of Present Illness Narrative History of Present Illness (Text): 01/27/17 15:36 31yo male with history of Pancreatitis present with complaint of right sided lower back pain since this morning. States he has been having upper back pain for few weeks now. Saw his PMD and was given meloxicam and muscle relaxer. Started having the lower back pain today, while walking up some stairs at work today. Pain is worse with movement. Denies trauma, focal weakness, abdominal pain, urinary symptoms, urinary/fecal incontinence, any other complaint. Past Medical History - Provider Review Nursing Documentation Reviewed: Yes - Infectious Disease Hx of Infectious Diseases: None - Tetanus Immunization Tetanus Immunization: Unknown - Cardiac Hx Cardiac Disorders: No Hx Hypertension: No - Pulmonary Hx Respiratory Disorders: Yes (SMOKES CIGARS) Hx Tuberculosis: No - Neurological Hx Neurological Disorder: No HX Cerebrovascular Accident: No Hx Seizures: No - HEENT Hx HEENT Disorder: No - Renal Hx Renal Disorder: No - Endocrine/Metabolic Hx Endocrine Disorders: No - Hematological/Oncological Hx Blood Disorders: No Hx Cancer: No - Integumentary Hx Dermatological Disorder: No - Musculoskeletal/Rheumatological Hx Musculoskeletal Disorders: No Hx Falls: No - Gastrointestinal Hx Gastrointestinal Disorders: Yes (CONSTIPATION) Hx Pancreatitis: Yes - Genitourinary/Gynecological Hx Genitourinary Disorders: No Hx Sexually Transmitted Diseases: No - Psychiatric Hx Psychophysiologic Disorder: No Hx Substance Use: Yes (MARIJUANA USE. LAST USED A MON AGO.) - Past Surgical History Past Surgical History: No Previous - Anesthesia Hx Anesthesia: No - Suicidal Assessment Feels Threatened In Home Enviroment: No Family/Social History - Physician Review Nursing Documentation Reviewed: Yes Family/Social History: Unknown Family HX Smoking Status: Current Some Days Smoker Hx Alcohol Use: Yes (ETOH OCCA. -LAST DRANK THURSDAY.STATES 1 BOTTLE OF BOURBON? ) Hx Substance Use: Yes (MARIJUANA USE. LAST USED A MON AGO.) Allergies/Home Meds Allergies/Adverse Reactions: Allergies shellfish derived Allergy (Verified 08/08/16 16:20) ANAPHYLAXIS venom-honey bee [bee venom (honey bee)] Allergy (Verified 08/08/16 16:20) ANAPHYLAXIS Home Medications: Home Meds Medication Instructions Recorded Confirmed Chlorzoxazone 250 mg PO BID 01/27/17 01/27/17 Meloxicam [Mobic] 7.5 mg PO DAILY 01/27/17 01/27/17 Review of Systems - Physician Review All systems were reviewed & negative as marked: Yes - Review of Systems Constitutional: Normal Eyes: Normal ENT: Normal Respiratory: Normal Cardiovascular: Normal Gastrointestinal: Normal Genitourinary Male: Normal Musculoskeletal: Back Pain Skin: Normal Neurological: Normal Endocrine: Normal Hemo/Lymphatic: Normal Psychiatric: Normal Physical Exam Vital Signs Reviewed: Yes Vital Signs Temp Pulse Resp BP Pulse Ox 01/27/17 15:13 98.1 F 85 18 134/80 97 01/27/17 15:09 97.8 F 82 16 134/80 98 Temperature: Afebrile Blood Pressure: Normal Pulse: Regular Respiratory Rate: Normal Appearance: Positive for: Well-Appearing, Non-Toxic, Comfortable Pain Distress: None Mental Status: Positive for: Alert and Oriented X 3 - Systems Exam Head: Present: Atraumatic, Normocephalic Pupils: Present: PERRL Extroacular Muscles: Present: EOMI Conjunctiva: Present: Normal Mouth: Present: Moist Mucous Membranes Neck: Present: Normal Range of Motion Respiratory/Chest: Present: Clear to Auscultation, Good Air Exchange. No: Respiratory Distress, Accessory Muscle Use Cardiovascular: Present: Regular Rate and Rhythm, Normal S1, S2. No: Murmurs Abdomen: Present: Normal Bowel Sounds. No: Tenderness, Distention, Peritoneal Signs Back: Present: Paraspinal Tenderness (Right paralumbar tenderness), Pain with Leg Raise (Left leg). No: Midline Tenderness Upper Extremity: Present: Normal Inspection. No: Cyanosis, Edema Lower Extremity: Present: Normal Inspection. No: Edema Neurological: Present: GCS=15, CN II-XII Intact, Speech Normal Skin: Present: Warm, Dry, Normal Color. No: Rashes Psychiatric: Present: Alert, Oriented x 3, Normal Insight, Normal Concentration Medical Decision Making ED Course and Treatment: 01/27/17 16:03 PT was ambulatory, have no focal neurological deficit. His pain was controlled in ED with Troadol and flexeril. LS xray was negative Result was DW the pt. He is already on Meloxicam and MS. Tramadol was added and he was advised to f/u with his PMD/ortho. - RAD Interpretation Radiology Orders: 01/27/17 15:10 LS SPINE WITH OBL > 18 YRS OLD [RAD] Stat - Medication Orders Current Medication Orders: Discontinued Medications Cyclobenzaprine HCl (Flexeril) 10 mg PO STAT STA Stop: 01/27/17 15:12 Last Admin: 01/27/17 15:22 Dose: 10 mg Ketorolac Tromethamine (Toradol) 60 mg IM STAT STA Stop: 01/27/17 15:12 Last Admin: 01/27/17 15:22 Dose: 60 mg MAR Pain Assessment Document 01/27/17 15:22 RAISSA (Rec: 01/27/17 15:23 RAISSA [place] [id number]) Pain Reassessment Is this a pain reassessment? Yes Sleep Is patient sleeping during reassessment? No Presence of Pain Presence of Pain Yes Location Upper or Lower Upper Pain Location Body Site Back Description Description Intermittent Intensity of Pain at present 7 IM Administration Charges Document 01/27/17 15:22 RAISSA (Rec: 01/27/17 15:23 RIASSA [place] [id number]) Injection Site MAR Injection Site Left Deltoid Charges for Administration # of IM Administrations 1 Disposition/Present on Arrival - Present on Arrival Any Indicators Present on Arrival: No History of DVT/PE: No History of Uncontrolled Diabetes: No Urinary Catheter: No History of Decub. Ulcer: No History Surgical Site Infection Following: None - Disposition Have Diagnosis and Disposition been Completed?: Yes Diagnosis: Back pain Disposition: HOME/ ROUTINE Disposition Time: 16:05 Patient Plan: Discharge Patient Problems: Current Active Problems Problem Status Onset Back pain Acute Condition: STABLE Discharge Instructions (ExitCare): Back Pain (ED) Additional Instructions: follow up with your doctor/orthopedist Return to Ed or any new or worsening symptoms Prescriptions: traMADol [Ultram] 50 mg PO TID #10 tab Referrals: Steven Quezada III, MD [Medical Doctor] - Follow up with primary YimiKia MD [Primary Care Provider] - Follow up with primary Forms: [employer] (Omani), WORK NOTE
--- NOTE | 2017-01-27 15:59 | RAD ---
PROCEDURE: Radiographs of the Lumbar Spine. HISTORY: back pain COMPARISON: No prior. FINDINGS: BONES: Normal alignment. No listhesis. No fracture. DISC SPACES: Unremarkable. OTHER FINDINGS: None. IMPRESSION: Unremarkable radiographs of the lumbar spine.
[2017-01-27 16:41] VITALS: BP 135/79; PULSE 77; RESP 16; O2SAT 99
== END 2017-01-27 16:41 | disposition home or self-care (01) ==
LOC: ED 14:31
DX: M54.5 Low back pain (principal)
CPT/HCPCS: 72110; 96372; 99282; J1885

== ENCOUNTER 2017-04-23 05:41 | Emergency (ER) | payer MEDICAID, OTHER ==
[2017-04-23 05:42] VITALS: BMI 25.7
[2017-04-23 06:07] VITALS: RESP 18; O2SAT 100
--- NOTE | 2017-04-23 06:25 | ED PDOC ---
Arrival/HPI - General Chief Complaint: Male Genitourinary Time Seen by Provider: 04/23/17 06:18 - History of Present Illness Narrative History of Present Illness (Text): 04/23/17 06:22 pt is c/o of rt testicular pain which started yesterday, currently feels sore, no dysuria or fever or chills Past Medical History - Provider Review Nursing Documentation Reviewed: Yes - Infectious Disease Hx of Infectious Diseases: None - Tetanus Immunization Tetanus Immunization: Unknown - Cardiac Hx Cardiac Disorders: No Hx Hypertension: No - Pulmonary Hx Respiratory Disorders: Yes (SMOKES CIGARS) Hx Tuberculosis: No - Neurological Hx Neurological Disorder: No HX Cerebrovascular Accident: No Hx Seizures: No - HEENT Hx HEENT Disorder: No - Renal Hx Renal Disorder: No - Endocrine/Metabolic Hx Endocrine Disorders: No Other/Comment: pre diabetic - Hematological/Oncological Hx Blood Disorders: No Hx Cancer: No - Integumentary Hx Dermatological Disorder: No - Musculoskeletal/Rheumatological Hx Musculoskeletal Disorders: No Hx Falls: No - Gastrointestinal Hx Gastrointestinal Disorders: Yes Hx Pancreatitis: Yes - Genitourinary/Gynecological Hx Genitourinary Disorders: No Hx Sexually Transmitted Diseases: No - Psychiatric Hx Psychophysiologic Disorder: No Hx Substance Use: Yes - Past Surgical History Past Surgical History: No Previous - Anesthesia Hx Anesthesia: No - Suicidal Assessment Feels Threatened In Home Enviroment: No Family/Social History - Physician Review Nursing Documentation Reviewed: Yes Family/Social History: No Known Family HX Smoking Status: cigar Hx Alcohol Use: Yes Frequency of alcohol use: Socially Hx Substance Use: Yes Allergies/Home Meds Allergies/Adverse Reactions: Allergies shellfish derived Allergy (Verified 08/08/16 16:20) ANAPHYLAXIS venom-honey bee [bee venom (honey bee)] Allergy (Verified 08/08/16 16:20) ANAPHYLAXIS Review of Systems - Review of Systems Constitutional: Normal Eyes: Normal ENT: Normal Respiratory: Normal Cardiovascular: Normal Gastrointestinal: Normal Genitourinary Male: Other (testicular pain) Musculoskeletal: Normal Skin: Normal Neurological: Normal Endocrine: Normal Hemo/Lymphatic: Normal Psychiatric: Normal Physical Exam Vital Signs Temp Pulse Resp BP Pulse Ox 04/23/17 09:37 72 18 136/87 100 04/23/17 07:44 98.7 F 78 18 111/74 100 04/23/17 06:09 76 18 119/62 100 04/23/17 06:06 77 18 119/62 100 04/23/17 05:59 97.6 F Temperature: Afebrile Blood Pressure: Normal Pulse: Regular Respiratory Rate: Normal Appearance: Positive for: Well-Appearing, Non-Toxic, Comfortable Pain Distress: None Mental Status: Positive for: Alert and Oriented X 3 - Systems Exam Head: Present: Atraumatic, Normocephalic Pupils: Present: PERRL Extroacular Muscles: Present: EOMI Conjunctiva: Present: Normal Mouth: Present: Moist Mucous Membranes Neck: Present: Normal Range of Motion Respiratory/Chest: Present: Clear to Auscultation, Good Air Exchange. No: Respiratory Distress, Accessory Muscle Use Cardiovascular: Present: Regular Rate and Rhythm, Normal S1, S2. No: Murmurs Abdomen: Present: Normal Bowel Sounds. No: Tenderness, Distention, Peritoneal Signs Genitourinary Male: Present: Testicle Tenderness (rt sided) Back: Present: Normal Inspection Upper Extremity: Present: Normal Inspection. No: Cyanosis, Edema Lower Extremity: Present: Normal Inspection. No: Edema Neurological: Present: GCS=15, CN II-XII Intact, Speech Normal Skin: Present: Warm, Dry, Normal Color. No: Rashes Psychiatric: Present: Alert, Oriented x 3, Normal Insight, Normal Concentration Medical Decision Making - Lab Interpretations Microbiology Results: Microbiology Results 04/23/17 09:00 Urine,Clean Catch Urine Culture - Final No Growth (<1,000 CFU/ML) Lab Results: Lab Results 04/23/17 06:12: Urine Color Yellow, Urine Appearance Clear, Urine pH 6.0, Ur Specific [place] >= 1.030, Urine Protein Negative, Urine Glucose (UA) Negative, Urine Ketones Negative, Urine Blood Negative, Urine Nitrate Negative, Urine Bilirubin Negative, Urine Urobilinogen 0.2, Ur Leukocyte Esterase Trace H, Urine RBC 0 - 2, Urine WBC 2 - 5, Ur Epithelial Cells 0 - 2, Amorphous Sediment Few, Urine Bacteria Many - RAD Interpretation Radiology Orders: 04/23/17 06:24 TESTES DUPLEX COMPLETE [US] Stat - Transfer of Care Patient signed out to Dr:: konrad u/a us and dispo Disposition/Present on Arrival - Present on Arrival Any Indicators Present on Arrival: No History of DVT/PE: No History of Uncontrolled Diabetes: No Urinary Catheter: No History of Decub. Ulcer: No History Surgical Site Infection Following: None - Disposition Have Diagnosis and Disposition been Completed?: Yes Diagnosis: Testicle pain, Hernia Disposition: HOME/ ROUTINE Disposition Time: 07:00 Condition: GOOD Discharge Instructions (ExitCare): Inguinal Hernia (ED), Testicle Pain (ED) Additional Instructions: Follow-up with urologist as directed. For any pain or swelling, any difficulty urinating, any fevers or chills, any redness, any rash or masses, get rechecked immediately. Take medication as directed. Prescriptions: Cephalexin [cephalexin] 500 mg PO TID #21 cap Naproxen 250 mg PO BID PRN #10 tablet PRN Reason: Pain, Mild (1-3) Referrals: Kia Geller MD [Primary Care Provider] - Follow up with primary Macy Quiroga MD [Staff Provider] - Follow up with primary Forms: [facility] (Martiniquais), WORK NOTE
--- NOTE | 2017-04-23 07:14 | ED PDOC ---
Physical Exam Vital Signs Temp Pulse Resp BP Pulse Ox 04/23/17 06:09 76 18 119/62 100 04/23/17 06:06 77 18 119/62 100 04/23/17 05:59 97.6 F Medical Decision Making ED Course and Treatment: 04/23/17 07:14 Case signed out to me by Dr. Angel. Patient is a 32 year old male with right testicular pain since one day. Patient re-examined by me. There is mild pain to right testicle, superior portion, but no erythema or edema, no incarcerated masses palpated, no epidydimal pain. Exam not consistent with torsion. He has no inguinal incarcerated masses palpated. No penile rash or discharge. Reports intermittent pain to right testicle for one year. Pain worse with walking at times, not worse with lifting or moving bowels. Abdomen is soft and nontender. Denies fevers or chills. Denies recent history of stds. No penile discharge. Ultrasound reading reviewed with patient in laymens' terms. As no torsion noted, pain controlled, and no sign of incarcerated hernia, will d /c with nsaids, and given ultrsound findings of microlithiasis and possible hernia, recommended follow-up with pmd, and stressed need for urology follow-up. Given urinalysis results, will d/c with abx for ? uti. - Lab Interpretations I have reviewed the lab results: Yes - RAD Interpretation Radiology Orders: 04/23/17 06:24 TESTES DUPLEX COMPLETE [US] Stat Hog Feeder: Radiologist - Scribe Statement The provider has reviewed the documentation as recorded by the Scribe Stacey Echvearria Provider Scribe Attestation: All medical record entries made by the Scribe were at my direction and personally dictated by me. I have reviewed the chart and agree that the record accurately reflects my personal performance of the history, physical exam, medical decision making, and the department course for this patient. I have also personally directed, reviewed, and agree with the discharge instructions and disposition. Disposition/Present on Arrival - Present on Arrival Any Indicators Present on Arrival: No History of DVT/PE: No History of Uncontrolled Diabetes: No Urinary Catheter: No History of Decub. Ulcer: No History Surgical Site Infection Following: None - Disposition Have Diagnosis and Disposition been Completed?: Yes Diagnosis: Testicle pain, Hernia Disposition: HOME/ ROUTINE Disposition Time: 09:30 Patient Plan: Discharge Condition: GOOD Discharge Instructions (ExitCare): Inguinal Hernia (ED), Testicle Pain (ED) Additional Instructions: Follow-up with urologist as directed. For any pain or swelling, any difficulty urinating, any fevers or chills, any redness, any rash or masses, get rechecked immediately. Take medication as directed. Prescriptions: Cephalexin [cephalexin] 500 mg PO TID #21 cap Naproxen 250 mg PO BID PRN #10 tablet PRN Reason: Pain, Mild (1-3) Referrals: Kia Geller MD [Primary Care Provider] - Follow up with primary Macy Quiroga MD [Staff Provider] - Follow up with primary Forms: [facility] [employer] [facility] (Faroese), WORK NOTE
[2017-04-23 07:23] LABS: URINE BILIRUBIN NEGATIVE (NEGATIVE); URINE BLOOD NEGATIVE (NEGATIVE); URINE GLUCOSE (UA) NEGATIVE (NEGATIVE); URINE LEUKOCYTE ESTERASE TRACE Leu/uL (NEGATIVE); URINE NITRATE NEGATIVE (NEGATIVE); URINE PROTEIN NEGATIVE mg/dL (<30 mg/dL); URINE UROBILINOGEN 0.2 E.U./dL (<1 E.U./dL)
[2017-04-23 07:27] LABS: URINE APPEARANCE CLEAR (CLEAR); URINE COLOR YELLOW (YELLOW)
[2017-04-23 07:43] LABS: URINE AMORPHOUS SEDIMENT FEW; URINE BACTERIA MANY (NEG); URINE EPITHELIAL CELLS 0 - 2 /hpf (0-5); URINE RBC 0 - 2 /hpf (0-2)
[2017-04-23 07:44] VITALS: TEMP 98.7
--- NOTE | 2017-04-23 07:58 | US ---
EXAM: US Scrotum CLINICAL HISTORY: 32 years old, male; Pain; Scrotum pain; Additional info: Rt sided pain TECHNIQUE: Real-time ultrasound of the scrotum with color Doppler and image documentation. The study was personally discussed on the telephone with Clari rogers on 04/23/2017 7:53 AM EST. the second set of images are of the left testicle and epididymis. These images will be corrected by certified nuclear medicine technologist. These findings were discussed and agreed upon. COMPARISON: No relevant prior studies available. FINDINGS: Right testicle: There is a right testicular scattered microlithiasis. The right testicle measures 4.2 x 2.4 x 3.1 cm. Duplex assessment demonstrates presence of color Doppler signal and spectral Doppler waveform in right testicle. Both testicles are labeled as right on the images. No torsion. Left testicle: The left testicle measures 4.2 x 2.5 x 2.8 cm. Left testicular microlithiasis. No torsion. The second set of images belonged to left testicle. No torsion.Duplex assessment demonstrates presence of color Doppler signal and spectral Doppler waveform in left testicle. Epididymides: The right epididymal head measures 1.6 x 0.9 x 0.6 cm. The left epididymis measures 0.7 x 0.8 x 1.0 cm. Scrotum: There is small left hydrocele.Superior to the right testicle almost in the midline there is echogenic soft tissue like representing hernia. Correlation with clinical examination is recommended. IMPRESSION: 1. Superior to the right testicle almost in the midline there is echogenic soft tissue like representing hernia. Correlation with clinical examination is recommended. 2. There is small left hydrocele. 3. Bilateral testicular microlithiasis.Correlation with urology clinical evaluation and further workup or followup as recommended by patient's clinical data.
[2017-04-23 09:38] VITALS: BP 136/87; PULSE 72
== END 2017-04-23 10:34 | disposition home or self-care (01) ==
LOC: ED 05:41
DX: N50.811 Right testicular pain (principal); K46.9 Unspecified abdominal hernia without obstruction or gangrene

== ENCOUNTER 2017-10-28 08:25 | Emergency (ER) | payer SELFPAY ==
[2017-10-28 08:48] VITALS: BP 118/72; PULSE 80; RESP 18; TEMP 98.9; O2SAT 100; BMI 28.3
--- NOTE | 2017-10-28 09:16 | ED PDOC ---
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 He states that three days ago he was taking a long drive from [place] and he believes it may be related to that. He states that he had to rest his R arm after the first few hours of the drive because of pain in his R elbow. He believes it may be a tendinitis and has tried some stretching but these have not helped so far. He has taken tramadol in the past for back pain but he has not tried any pain medicines for the elbow. 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 He is concerned that he will not be able to work effectively with the elbow pain. He has pain with flexion/extension and milder pain with pronation and supination of the R elbow. Otherwise, he denies R elbow swelling, erythema, fever, chills, CP, SOB, and nausea/vomiting. (Rupesh English) Past Medical History - Provider Review Nursing Documentation Reviewed: Yes - Travel History Have you recently traveled outside [place] w/in the past 3 mons?: No - Infectious Disease Hx of Infectious Diseases: None - Tetanus Immunization Tetanus Immunization: Unknown - Cardiac Hx Cardiac Disorders: No Hx Hypertension: No - Pulmonary Hx Respiratory Disorders: Yes (SMOKES CIGARS) Hx Tuberculosis: No - Neurological Hx Neurological Disorder: No HX Cerebrovascular Accident: No Hx Seizures: No - HEENT Hx HEENT Disorder: No - Renal Hx Renal Disorder: No - Endocrine/Metabolic Hx Endocrine Disorders: No Other/Comment: pre diabetic - Hematological/Oncological Hx Blood Disorders: No Hx Cancer: No - Integumentary Hx Dermatological Disorder: No - Musculoskeletal/Rheumatological Hx Musculoskeletal Disorders: No Hx Falls: No - Gastrointestinal Hx Gastrointestinal Disorders: Yes Hx Pancreatitis: Yes - Genitourinary/Gynecological Hx Genitourinary Disorders: No Hx Sexually Transmitted Diseases: No - Psychiatric Hx Psychophysiologic Disorder: No Hx Substance Use: Yes - Past Surgical History Past Surgical History: No Previous - Anesthesia Hx Anesthesia: No - Suicidal Assessment Feels Threatened In Home Enviroment: No <Rupesh English - Last Filed: 10/28/17 10:40> Family/Social History - Physician Review Nursing Documentation Reviewed: Yes Family/Social History: CVA/TIA (maternal grandmother), Hypertension (father and mother), Neoplasm/Cancer (sister had a brain cancer) Smoking Status: Current Some Days Smoker Hx Alcohol Use: Yes Frequency of alcohol use: Socially Hx Substance Use: Yes <Rupesh English - Last Filed: 10/28/17 10:40> Allergies/Home Meds <Rupesh English - Last Filed: 10/28/17 10:40> <Quintin He - Last Filed: 10/28/17 10:46> Allergies/Adverse Reactions: Allergies shellfish derived Allergy (Verified 08/08/16 16:20) ANAPHYLAXIS venom-honey bee [bee venom (honey bee)] Allergy (Verified 08/08/16 16:20) ANAPHYLAXIS Review of Systems - Review of Systems Constitutional: absent: Fatigue, Fevers Eyes: absent: Vision Changes, Photophobia ENT: Rhinorrhea, Sinus Congestion Respiratory: absent: SOB, Cough Cardiovascular: absent: Chest Pain, PEREZ Gastrointestinal: absent: Abdominal Pain, Nausea, Vomiting Genitourinary Male: absent: Dysuria Musculoskeletal: absent: Back Pain, Joint Swelling, Myalgias Skin: absent: Rash, Pruritis Neurological: absent: Headache, Dizziness Endocrine: absent: Diaphoresis Hemo/Lymphatic: absent: Adenopathy Psychiatric: absent: Anxiety, Depression <Rupesh English - Last Filed: 10/28/17 10:40> - Physician Review All systems were reviewed & negative as marked: Yes <Quintin He - Last Filed: 10/28/17 10:46> Physical Exam Vital Signs Reviewed: Yes Temperature: Afebrile Blood Pressure: Normal Pulse: Regular Respiratory Rate: Normal Appearance: Positive for: Non-Toxic, Comfortable Pain Distress: Moderate Mental Status: Positive for: Alert and Oriented X 3 - Systems Exam Head: Present: Atraumatic, Normocephalic Pupils: Present: PERRL Extroacular Muscles: Present: EOMI Conjunctiva: Present: Normal Ears: Present: Normal Mouth: Present: Moist Mucous Membranes Pharnyx: Present: Normal. No: ERYTHEMA, EXUDATE Nose (External): Present: Atraumatic Neck: Present: Normal Range of Motion. No: JVD Respiratory/Chest: Present: Clear to Auscultation. No: Wheezes, Rales, Rhonchi Cardiovascular: Present: Regular Rate and Rhythm, Normal S1, S2. No: Murmurs, Rub, Gallop Abdomen: No: Tenderness, Rebound, Guarding Back: Present: Normal Inspection. No: CVA Tenderness Lower Extremity: Present: Tenderness (tenderness to palpation R posterior, lateral, and medial olecranon), Neurovascularly Intact, Other (Pain with passive and active flexion, extension, pronation, supination of R elbow). No: Swelling, Erythema, Deformity, Temperature Abnormalties Neurological: Present: Speech Normal Skin: Present: Warm, Dry Psychiatric: Present: Alert, Oriented x 3 <Rupesh English - Last Filed: 10/28/17 10:40> Vital Signs Temp Pulse Resp BP Pulse Ox 10/28/17 08:48 98.9 F 80 18 118/72 100 10/28/17 08:47 98.9 F 80 18 118/72 100 Medical Decision Making <Rupesh English - Last Filed: 10/28/17 10:40> <Quintin He - Last Filed: 10/28/17 10:46> ED Course and Treatment: 10/28/17 09:19 -Patient's exam is consistent with R elbow tendinitis, although history is unusual for tendinitis -Will get R elbow xray 3 view to r/o acute process -Will give motrin 600 mg one time dose for pain 10/28/17 09:58 -Xray negative for fracture -Will discharge, encourage motrin for pain, continued stretching, ice -Follow up with PMD, orthopedic surgery (Rupesh English) Patient Seen With Resident: In agreement with resident note which contains more details about the patient. Patient was seen and evaluated with resident. Came up with plan and treatment together. 32 year old male presents complaining of worsening right elbow pain and limited range of motion for the past 3 days. Plan: -- Motrin -- Elbow right 3V X-ray Patient has no swelling or change in skin color compared to other arm. He has tenderness along side ulnar and median nerve area of elbow. FROM. 5/5 MS, Sensation intact. Neurovascularly intact. He has no clinicaly indications for DVT. He has a negative Xray today. Patient advised to take motrin and f/u with clinic. He was advised to return to the ED with any concerns. (Quintin He) - RAD Interpretation Radiology Orders: 10/28/17 09:10 ELBOW RIGHT 3 VIEWS ROUTINE [RAD] Stat - Medication Orders Current Medication Orders: Discontinued Medications Ibuprofen (Motrin Tab) 600 mg PO STAT STA Stop: 10/28/17 09:11 Last Admin: 10/28/17 09:18 Dose: 600 mg MAR Pain/Vitals Document 10/28/17 09:18 RAISSA (Rec: 10/28/17 09:22 RAISSA [id number]) Pain Reassessment Is This A Pain ReAssessment? Yes Presence of Pain Presence of Pain Yes Pain Scale Used Pain Scale Used Numeric Location Left, Right or Bilateral Right Pain Location Body Site Elbow Intensity 2 Scale Used Numeric <Rupesh English - Last Filed: 10/28/17 10:40> - PA / FIELD TECHNICAL SPECIALIST / Resident Statement / has reviewed & agrees with the documentation as recorded. MD/ has examined the patient and agrees with the treatment plan. - Scribe Statement The provider has reviewed the documentation as recorded by the Scribe <Quintin He - Last Filed: 10/28/17 10:46> - Scribe Statement Charli Grissom Provider Scribe Attestation: All medical record entries made by the Scribe were at my direction and personally dictated by me. I have reviewed the chart and agree that the record accurately reflects my personal performance of the history, physical exam, medical decision making, and the department course for this patient. I have also personally directed, reviewed, and agree with the discharge instructions and disposition. (Quintin He) Disposition/Present on Arrival - Present on Arrival Any Indicators Present on Arrival: No History of DVT/PE: No History of Uncontrolled Diabetes: No Urinary Catheter: No History of Decub. Ulcer: No History Surgical Site Infection Following: None - Disposition Have Diagnosis and Disposition been Completed?: Yes Disposition Time: 09:59 Patient Plan: Discharge <Rupesh English - Last Filed: 10/28/17 10:40> <Quintin He - Last Filed: 10/28/17 10:46> - Disposition Diagnosis: Elbow tendonitis, Neuropathy Disposition: HOME/ ROUTINE Condition: IMPROVED Discharge Instructions (ExitCare): Peripheral Neuropathy, Tendonitis (DC) Additional Instructions: DAVON BISHOP, thank you for letting us take care of you today. Your provider was Quintin He DO and you were treated for right elbow tendonitis/ neuropathy. The emergency medical care you received today was directed at your acute symptoms. If you were prescribed any medication, please fill it and take as directed. It may take several days for your symptoms to resolve. Return to the Emergency Department if your symptoms worsen, do not improve, or if you have any other problems. Please contact your doctor or call one of the physicians/clinics you have been referred to that are listed on the Patient Visit Information form that is included in your discharge packet. Bring any paperwork you were given at discharge with you along with any medications you are taking to your follow up visit. Our treatment cannot replace ongoing medical care by a primary care provider outside of the emergency department. Thank you for allowing the [facility] team to be part of your care today. If you had an X-Ray or CT scan: A Radiologist will review the ED reading if any change in treatment is needed we will contact you. If you had a blood, urine, or wound culture: It will take several days for the results, if any change in treatment is needed we will contact you. If you had an STI test: It will take 48 hours for the results. Please call after 1 week if you have not heard back. Prescriptions: Ibuprofen [Motrin] 600 mg PO Q6 PRN #30 tab PRN Reason: Pain, Moderate (4-7) Referrals: [facility] at [facility] [place] - Follow up with primary Forms: [employer] (Tanzanian), WORK NOTE
--- NOTE | 2017-10-28 11:25 | RAD ---
Date of service: 10/28/2017 PROCEDURE: Radiographs of the right elbow. HISTORY: R elbow pain, possible tendinitis COMPARISON: No prior. FINDINGS: BONES: Normal. No fracture. JOINTS: Normal. No osteoarthritis. SOFT TISSUES: Normal. JOINT EFFUSION: None. OTHER FINDINGS: None. IMPRESSION: Unremarkable radiographs of the right elbow.
== END 2017-10-28 09:48 | disposition home or self-care (01) ==
LOC: ED 08:25
DX: G62.9 Polyneuropathy, unspecified (principal); M77.9 Enthesopathy, unspecified; R73.03 Prediabetes

== ENCOUNTER 2018-07-27 13:52 | Emergency (ER) | payer BC ==
[2018-07-27 14:29] VITALS: BMI 27.7
[2018-07-27 14:34] VITALS: BP 117/67; PULSE 80; RESP 18; TEMP 98.6; O2SAT 100
[2018-07-27] MEDS ORDERED: TDAP Vaccine 0.5 mL Syr IM ONE (14:40)
--- NOTE | 2018-07-27 14:47 | ED PDOC ---
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 Pt was washing a wine glass when it broke, cutting his volar 2nd digit of his left hand. Bleeding controlled at home with pressure. Pt applied bacitracin and a bandaid at home. Unknown last tetanus. Denies injury elsewhere, numbness, weakness, paresthesias, or any other associated symptoms. Past Medical History - Provider Review Nursing Documentation Reviewed: Yes - Infectious Disease Hx of Infectious Diseases: None - Tetanus Immunization Tetanus Immunization: Unknown - Cardiac Hx Cardiac Disorders: No Hx Hypertension: Yes - Pulmonary Hx Respiratory Disorders: Yes (SMOKES CIGARS) Hx Tuberculosis: No - Neurological Hx Neurological Disorder: No HX Cerebrovascular Accident: No Hx Seizures: No - HEENT Hx HEENT Disorder: No - Renal Hx Renal Disorder: No - Endocrine/Metabolic Hx Endocrine Disorders: No Other/Comment: pre diabetic - Hematological/Oncological Hx Blood Disorders: No Hx Cancer: No - Integumentary Hx Dermatological Disorder: No - Musculoskeletal/Rheumatological Hx Musculoskeletal Disorders: No Hx Falls: No - Gastrointestinal Hx Gastrointestinal Disorders: Yes Hx Pancreatitis: Yes - Genitourinary/Gynecological Hx Genitourinary Disorders: No Hx Sexually Transmitted Diseases: No - Psychiatric Hx Psychophysiologic Disorder: No Hx Substance Use: Yes - Past Surgical History Past Surgical History: No Previous - Anesthesia Hx Anesthesia: No - Suicidal Assessment Feels Threatened In Home Enviroment: No Family/Social History - Physician Review Nursing Documentation Reviewed: Yes Family/Social History: No Known Family HX Smoking Status: Current Some Days Smoker Hx Alcohol Use: Yes Hx Substance Use: Yes Allergies/Home Meds Allergies/Adverse Reactions: Allergies shellfish derived Allergy (Verified 07/27/18 14:29) ANAPHYLAXIS venom-honey bee [bee venom (honey bee)] Allergy (Verified 07/27/18 14:29) ANAPHYLAXIS Review of Systems - Review of Systems Constitutional: Normal. absent: Fevers Respiratory: Normal. absent: SOB, Cough Cardiovascular: Normal. absent: Chest Pain, Palpitations Gastrointestinal: Normal. absent: Nausea, Vomiting Musculoskeletal: Other (left hand 2nd digit pain) Skin: Laceration Neurological: Normal. absent: Other (NO numbness, weakness, paresthesias) Physical Exam Vital Signs Reviewed: Yes Vital Signs Temp Pulse Resp BP Pulse Ox 07/27/18 14:33 98.6 F 80 18 117/67 100 Temperature: Afebrile Blood Pressure: Normal Pulse: Regular Respiratory Rate: Normal Appearance: Positive for: Well-Appearing, Non-Toxic, Comfortable Pain Distress: None Mental Status: Positive for: Alert and Oriented X 3 - Systems Exam Head: Present: Atraumatic, Normocephalic Pupils: Present: PERRL Extroacular Muscles: Present: EOMI Conjunctiva: Present: Normal Mouth: Present: Moist Mucous Membranes Neck: Present: Normal Range of Motion Upper Extremity: Present: Normal ROM, NORMAL PULSES, Tenderness (over superifical laceration), Neurovascularly Intact, Capillary Refill < 2s, Other (see skin exam). No: Cyanosis, Edema, Deformity Lower Extremity: Present: Normal Inspection. No: Edema Neurological: Present: GCS=15, CN II-XII Intact, Speech Normal, Motor Func Grossly Intact, Normal Sensory Function, Gait Normal Skin: Present: Warm, Dry, Laceration (1.5cm, superficial to volar proximal phalanx of left hand 2nd digit; no active bleeding; No FB visualized; Full strength in flexion and extension; Full sensation). No: Rashes Psychiatric: Present: Alert, Oriented x 3, Normal Insight, Normal Concentration, Normal Affect, Normal Mood Medical Decision Making ED Course and Treatment: 07/27/18 14:44 Initial Plan: * Left Hand Xray * TDaP * Ibuprofen * Wound Cleaning * Wound Repair 15:22 Xray read as negative for FB or fracture by me. No FB visualized on exploration. Full strength in flexion/extension. Wound irrigated with normal saline, closed with dermabond, and dressed with sterile dressing by me. No complications, pt tolerated well. Educated on appropriate wound care. Advised PMD followup, pt states he has appointment in 4 days. Diagnostic testing results and plan of care discussed with patient. Strict instructions given regarding prescription use, importance of followup, and signs/symptoms to return to ER including wound redness/drainage/tenderness, or any other new/worsening symptoms. Pt verbalized understanding of discussion. Patient is A&Ox3, ambulating with steady gait, with vital signs stable for discharge. - RAD Interpretation Narrative RAD Interpretations (Text): 07/27/18 15:56 Left Hand XR: FINDINGS: BONES: No acute fracture is present. No bone destruction is seen. No erosions are noted. No periosteal reaction is seen. JOINTS: The metacarpals and digits are well aligned. SOFT TISSUE: Normal. No foreign body is seen. OTHER FINDINGS: None. IMPRESSION: No fracture. No radiopaque foreign body. Radiology Orders: 07/27/18 14:40 HAND LEFT 2ND DIGIT (FINGER) [RAD] Stat Division Manager: Radiologist - Medication Orders Current Medication Orders: Ibuprofen (Motrin Tab) 600 mg PO STAT STA Stop: 07/27/18 14:41 Tetanus/Reduced Diphtheria/Acell Pertussis (Boostrix Vaccine Inj) 0.5 ml IM .ONCE ONE Stop: 07/27/18 14:41 Procedure: Wound Repair - Time Performed Time Performed: 15:45 - Time Out Time Out: Side verified, Site verified, Patient ID confirmed - Consent Obtained Consent obtained: Verbal - Performed by Performed by: Mid-level Provider - Indications Indication(s):: Laceration - Location Location:: Left Finger:: Left, Index Dimensions Length cm: 1.5cm Depth:: Epidermis - Debris Debris:: None - Complexity Complexity:: Simple (one layer) - Wound repair method [place]:: Tissue glue - Complications Complications: None - Patient tolerated procedure Patient Tolerated Procedure:: Well Disposition/Present on Arrival - Present on Arrival Any Indicators Present on Arrival: No History of DVT/PE: No History of Uncontrolled Diabetes: No Urinary Catheter: No History of Decub. Ulcer: No History Surgical Site Infection Following: None - Disposition Have Diagnosis and Disposition been Completed?: Yes Diagnosis: Laceration Disposition: HOME/ ROUTINE Disposition Time: 15:22 Patient Problems: Current Active Problems Problem Status Onset Laceration Acute Condition: GOOD Discharge Instructions (ExitCare): Laceration Repair With Glue (DC), Wound Care (DC) Additional Instructions: Keep wound dry and covered for 48 hours After 48 hours, you may clean the wound daily with soap and water and pat dry After cleaning, apply bacitracin and dressing Keep wound clean, dry, and covered Followup with primary doctor within 2 days Return to ER for any signs of wound infection including redness, tenderness, swelling, drainage, fever or any other new/worsening symptoms Referrals: Zelda Hernandez MD [Medical Doctor] - [place] up [place] [facility] [place] [facility] [place] - Follow up with primary Forms: [employer] (Albanian), WORK NOTE
--- NOTE | 2018-07-27 15:27 | RAD ---
Date of service: 07/27/2018 PROCEDURE: Left 2nd finger HISTORY: laceration, r/o FB COMPARISON: None. TECHNIQUE: 3 views obtained of the left 2nd finger. FINDINGS: BONES: No acute fracture is present. No bone destruction is seen. No erosions are noted. No periosteal reaction is seen. JOINTS: The metacarpals and digits are well aligned. SOFT TISSUE: Normal. No foreign body is seen. OTHER FINDINGS: None. IMPRESSION: No fracture. No radiopaque foreign body.
[2018-07-27] MEDS ORDERED: Bacitracin 500 Units/gm Oint Foilpak UD TOP ONE (15:31)
[2018-07-27] MEDS ORDERED: Bacitracin 500 Units/gm Oint Foilpak UD ONE (15:43)
== END 2018-07-27 15:35 | disposition home or self-care (01) ==
LOC: ED 13:52
DX: S61.211A Laceration without foreign body of left index finger without damage to nail, initial encounter (principal); W25.XXXA Contact with sharp glass, initial encounter; I10 Essential (primary) hypertension; R73.03 Prediabetes; Z23 Encounter for immunization